=== PATIENT | female | born 1970 | race African-American/Black ===

== ENCOUNTER 2017-12-03 12:39 | Emergency (ER) | payer OTHER ==
[2017-12-03 12:48] VITALS: BP 106/57; PULSE 68; TEMP 97.2; BMI 20.3
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
== END 2017-12-03 17:30 | disposition home or self-care (01) ==
LOC: JERFT 12:39
DX: S02.31XA Fracture of orbital floor, right side, initial encounter for closed fracture (principal); S02.2XXA Fracture of nasal bones, initial encounter for closed fracture; W50.0XXA Accidental hit or strike by another person, initial encounter; Y93.89 Activity, other specified; Y92.9 Unspecified place or not applicable
CPT/HCPCS: 70450-TC; 70486-TC; 73030-TC-RT-FY; 73110-TC-LR-FY; 73130-TC-LR-FY; 73562-TC-RT-FY; 99281-25